=== PATIENT | female | born 1955 | race Caucasian/White ===

== ENCOUNTER → 2016-09-30 | Day surgery (SDC) | payer BC ==
[~2016-09-30] MED LIST: BUPIVACAINE HCL PF 0.75% 30 ML VIAL ONE; CLINDAMYCIN PHOS 600 MG/4 ML VIAL ONE; LACTATED RINGER'S 1000 ML INJ 1,000 ML ONE; LIDOCAINE 1.5%/EPINEPHrine 1:200,000 PF SOLN 30 ML AMP ONE; MIDAZOLAM HCL 5 MG/ML VIAL (1 ML) ONE; ONDANSETRON HCL 4 MG/2 ML VIAL IV PUSH ONE; PROPOFOL 100 MG/10 ML INJ IV ONE; ceFAZolin INJ 1,000 MG VIAL ONE
--- NOTE | 2016-09-30 20:35 | MP ---
cc: BOBBY WATTS MD DATE OF SURGERY 09/30/16 PREOPERATIVE DIAGNOSIS Right shoulder high-grade partial-thickness tear of the supraspinatus tendon. POSTOPERATIVE DIAGNOSIS Right shoulder full-thickness supraspinatus tear with near full-thickness subscapularis tendon tear and superior labral tear including anterior and posterior labrum. SURGEON Leonid Watts MD NUTRITIONAL YEAST SUPERVISOR ARIC Noguera NUTRITIONAL YEAST SUPERVISOR ARIC Myers The surgical procedure was assisted by my Advanced Registered Nurse Practitioner. My CAR BODY MECHANIC presence was necessary throughout this case for the manipulation and positioning of the surgical extremity. My CAR BODY MECHANIC was assisting me throughout the duration of this procedure. The skill set of an Advance Registered Nurse Practitioner was medically necessary to complete this procedure. During the surgical case, the surgical elastic knitter was working at the back table and the Advance Registered Nurse Practitioner was directly assisting me. PROCEDURE Right shoulder arthroscopic rotator cuff repair of supraspinatus tendon and subscapularis tendon with subacromial decompression, partial acromioplasty and extensive debridement of the superior, anterior, and posterior labrum. ANESTHESIA General and interscalene block. PROCEDURE IN DETAIL The patient had interscalene block performed. She was then brought back to the operative theater. General anesthesia was administered. She was placed into a lateral decubitus position. She was placed into 12 pounds of in-line traction. The right upper extremity was prepped and draped in usual sterile fashion. She did have scratch on the back of the shoulder which was prepped out using Ioban. The patient received intravenous antibiotics. We made standard posterior portal for the diagnostic arthroscopy. We did find that the humeral head was subluxed anteriorly but was reducible. The biceps tendon itself was intact with some mild synovitis, however, there is significant tearing of the labrum at the very superior aspect and also the posterior and anterior aspect. Glenohumeral joint had minimal chondromalacia. We placed an anterior soft spot cannula. We debrided the labrum superiorly, anteriorly, and posteriorly. We probed the labrum at the insertion site by the biceps tendon. It was intact. More anteriorly, there was some elevation of the labrum off of the glenoid with some mild instability. This was associated with a near full-thickness tendon tear to the subscapularis tendon which was mildly retracted. We debrided the footprint of the subscapularis tendon and then we repaired this using a fiber tape that was essentially wound through and then around the tendon and we anchored this using an Arthrex biocomposite swivel lock. This was done back into anatomic position. Note that the biceps tendon itself remained in good position and was within the groove. We evaluated the undersurface of the supraspinatus tendon which we found what appeared to be at least a partial thickness tear. This was debrided. This was at the edge of the supraspinatus tendon and infraspinatus tendon. This was consistent with the MRI findings. We marked this and made a lateral arthroscopic incision in this area. We placed the arthroscope in the subacromial space. We found quite a bit of bursitis which was debrided using oscillating shaver and also the underwater Bovie. We further evaluated the rotator cuff tendon tear of the supraspinatus tendon and found it to be a full-thickness tendon tear and had chronic appearance to it on the bursal side. The edges were debrided. There was significant sclerosis of the underlying bone which was debrided using a shaver and also a rasp to prepare for repair. We then repaired this tear using a modified speed bridge, placed a medial Swivel lock which had a fiber tape and a FiberWire associated with it. We cut the edges of the fiber tape and threw these into horizontal mattress stitch fashion with one being fairly anterior and then one being fairly posterior. Then we threw the fiber wire into a vertical stitch configuration. This was done in between the two fiber tapes. This allowed us to then use an arthroscopic knot tying technique on the FiberWire to anatomically reduce the central portion of the rotator cuff. We then were able to take the four limbs and secure these down laterally completing the speed bridge. We anchored these down with a swivel lock laterally which created a very nice repair which was knotless ultimately in its final configuration by laying down the central knot on the FiberWire. We took final arthroscopic pictures. We closed incisions with 2-0 Vicryl followed by 3-0 nylon. The patient was placed into as a sling and swath. Postoperative plan is standard rotator cuff repair protocol with delayed active internal rotation of the shoulder. MD SHAHZAD Henson/ /3:33 PM /8:18 PM
== END | disposition home or self-care (01) ==
LOC: ESDC 11:36
PROVIDERS: ATTEND Orthopaedic Surgery
DX: M75.121 Complete rotator cuff tear or rupture of right shoulder, not specified as traumatic (principal); S43.431A Superior glenoid labrum lesion of right shoulder, initial encounter
CPT/HCPCS: 01630; 01991; 29823; 29826; 29827; 64417; C1713; J2250; J2405; J7120; J0690